=== PATIENT | female | born 1995 | race Caucasian/White ===

== ENCOUNTER 2016-07-23 09:37 | Emergency (ER) | payer BC ==
[2016-07-23 10:06] VITALS: BP 120/63
--- NOTE | 2016-07-23 11:15 | UC ---
Headache HPI - HPI Summary HPI Summary: 20 yo female with the onset of blurred vision about 1 AM. This resolved after a 20 minute nap. Later she developed bilateral hand tingling then if felt like her legs were numb. This resolved and she went to bed. About 3 AM she developed a right frontal headache. When she awoke she vomited x one. Now has a very mild GOODMAN. no f/c States she has migraines although she has never seen a MD about them Gets a headache and photophobia...goes to sleep and when she wakes up headache is gone - History Of Current Complaint Chief Complaint: UCGeneralIllness Stated Complaint: EYE COMPLAINT/HANDS/LEGS NUMB Time Seen by Provider: 07/23/16 10:13 Hx Obtained From: Patient Hx Last Menstrual Period: 07/12/16 Onset/Duration: Gradual Onset, Lasting Hours Onset Of Symptoms: Gradual Initially Headache Was: "Worst Headache Ever", Moderate Currently Pain Is: Mild Pain Intensity: 1 Pain Scale Used: 0-10 Numeric Timing: Constant Character: Throbbing, Pressure Location of Headache: Frontal Allevating Factors: Nothing - spontaneously has resolved Associated Signs And Symptoms: Positive: Vomiting - x1, Visual Changes - prior to GOODMAN - Allergies/Home Medications Allergies/Adverse Reactions: Allergies Allergy/AdvReac Type Severity Reaction Status Date / Time No Known Allergies Allergy Verified 07/23/16 09:56 Home Medications: Home Medications Control Pill 1 tab PO DAILY 07/23/16 [History] PMH/Surg Hx/FS Hx/Imm Hx Previously Healthy: Yes Neurological History Of: Reports: Migraine - ? - Surgical History Surgical History: None - Family History Known Family History: Positive: Cardiac Disease, Hypertension, Diabetes, Other - some relatives have migraines - Social History Alcohol Use: None Substance Use Type: None Smoking Status (MU): Never Smoked Tobacco Review of Systems Constitutional: Negative Skin: Negative Eyes: Blurred Vision - resolved ENT: Negative Respiratory: Negative Cardiovascular: Negative Gastrointestinal: Negative Genitourinary: Negative Motor: Negative Neurovascular: Negative Musculoskeletal: Negative Neurological: Headache - almost gone, Numbness - gone Psychological: Anxious - when here vision was blurry All Other Systems Reviewed And Are Negative: Yes Physical Exam Triage Information Reviewed: Yes Appearance: Well-Appearing, No Pain Distress, Well-Nourished Vital Signs: Initial Vital Signs Temp 98.7 F 07/23/16 09:57 Pulse 77 07/23/16 09:57 Resp 18 07/23/16 09:57 BP 120/63 07/23/16 09:57 Pulse Ox 99 07/23/16 09:57 Vital Signs Reviewed: Yes Eyes: Positive: Conjunctiva Clear, Other: - EOMI/PERRL ,fundi benign ENT: Positive: Hearing grossly normal, Pharynx normal, TMs normal. Negative: Pharyngeal erythema, Nasal congestion, Nasal drainage, TM bulging, TM dull, TM red, Tonsillar swelling, Tonsillar exudate, Trismus, Muffled/hoarse voice Neck: Positive: Supple, Nontender, No Lymphadenopathy, Other: - no bruits Respiratory: Positive: Lungs clear, Normal breath sounds, No respiratory distress Cardiovascular: Positive: RRR, No Murmur Musculoskeletal: Positive: Strength Intact, ROM Intact Neurological: Positive: Alert Psychological Exam: Normal Skin Exam: Normal Re-Evaluation - Re-Evaluation First Eval Change: Improved - headache now completely gone Headache Course/Dx - Differential Dx/Diagnosis Provider Diagnoses: migraine headache Discharge - Discharge Plan Condition: Stable Disposition: HOME Patient Education Materials: Migraine Headache (ED) Forms: *School Release Referrals: No Primary Care Phys,NOPCP [Primary Care Provider] - Additional Instructions: I suspect your symptoms were due to a migraine I suggest you see a neurologist I suggest you stop control pills pending you neurologist visit return if symptoms recur Advil three pills at onset of next headache
--- NOTE | 2016-07-23 11:24 | RAD ---
Indication: Right frontal headache. CT of the brain was performed without IV contrast. Ventricular structures are midline. No midline shift is noted. The extra-axial spaces are unremarkable. There is no evidence of intracranial mass or hemorrhage. No other high or low density lesions are identified. Mastoid air cells and paranasal sinuses are otherwise clear. IMPRESSION: No intracranial mass or hemorrhage is noted.
== END 2016-07-23 11:57 | disposition home or self-care (01) ==
LOC: UCCORT 09:37
DX: G43.909 Migraine, unspecified, not intractable, without status migrainosus (principal)
CPT/HCPCS: 70450; 99201; G0463